=== PATIENT | female | born 1970 | race Hispanic/Latino ===

== ENCOUNTER 2022-11-05 21:44 | Emergency (ER) | payer OTHER ==
[~2022-11-05] VITALS: Ht 152.4 cm; Wt 77.1 kg
[2022-11-05] MEDS ORDERED: CYCLOBENZAPRINE5 MG PO (23:21)
== END 2022-11-05 23:53 | disposition home or self-care (01) ==
LOC: FSED 21:49
DX: S00.83XA Contusion of other part of head, initial encounter (principal); R51.9 Headache, unspecified; S13.4XXA Sprain of ligaments of cervical spine, initial encounter; S20.212A Contusion of left front wall of thorax, initial encounter; S30.1XXA Contusion of abdominal wall, initial encounter; V43.52XA Car driver injured in collision with other type car in traffic accident, initial encounter; Y92.488 Other paved roadways as the place of occurrence of the external cause
CPT/HCPCS: 70450; 71250; 72125; 74176; 99283